=== PATIENT | male | born 1965 | race Caucasian/White ===

== ENCOUNTER 2017-06-11 18:38 | Emergency (ER) | payer MEDICAID ==
[~2017-06-11] VITALS: Ht 167.6 cm; Wt 61.0 kg
[~2017-06-11 18:38] MED LIST: BACL10TA PO; BUPR-93 PO; GABA-318 PO; METH10 PO; TRAM50TA4 PO; WARF5TAB6 PO
[2017-06-11] MEDS ORDERED: TraMADol HCL 50 MG TABLET PO ONE ×2 (19:30→22:45)
[2017-06-11] MEDS ORDERED: BACLOFEN 10 MG TABLET PO ONE ×2 (19:30→22:45)
[2017-06-11] MEDS ORDERED: GABAPENTIN 300 MG CAPSULE PO ONE (22:45)
[2017-06-11 22:57] VITALS: BP 128/82
== END 2017-06-11 23:01 | disposition home or self-care (01) ==
LOC: EMS 18:38
DX: S33.9XXA Sprain of unspecified parts of lumbar spine and pelvis, initial encounter (principal); I83.018 Varicose veins of right lower extremity with ulcer other part of lower leg; I83.028 Varicose veins of left lower extremity with ulcer other part of lower leg; L97.819 Non-pressure chronic ulcer of other part of right lower leg with unspecified severity; L97.829 Non-pressure chronic ulcer of other part of left lower leg with unspecified severity; G89.29 Other chronic pain; F17.210 Nicotine dependence, cigarettes, uncomplicated; F11.90 Opioid use, unspecified, uncomplicated; Z88.6 Allergy status to analgesic agent; W05.0XXA Fall from non-moving wheelchair, initial encounter; Y93.89 Activity, other specified; Y92.488 Other paved roadways as the place of occurrence of the external cause; Y99.8 Other external cause status
CPT/HCPCS: 72100; 72170; 99284; 99406